=== PATIENT | female | born 1965 | race American Indian/Alaskan Native ===

== ENCOUNTER 2017-10-28 07:36 | Outpatient (CLI) | payer MEDICARE ==
[2017-10-28] MEDS ORDERED: LEXISCAN IV ONE ×2 (09:18→09:23)
[2017-10-28 13:38] VITALS: BP 116/69
--- NOTE | 2017-10-29 06:10 | Treadmill Report ---
THALLIUM STRESS TEST LEFT VENTRICLE: Left ventricular chamber size is within normal spread. Perfusion study demonstrates a small fixed apical defect, no reversibility on the resting study. Gated analysis demonstrates normal left ventricular systolic function, ejection fraction of 64%. CONCLUSION: Small fixed apical defect consistent with breast attenuation artifact, otherwise normal study. No ischemia demonstrated. [facility]# [id number] CA/NTS
== END 2017-10-28 07:37 | disposition home or self-care (01) ==
LOC: CARD 07:36
PROVIDERS: ATTEND Internal Medicine Cardiovascular Disease
DX: Z01.810 Encounter for preprocedural cardiovascular examination (principal); I10 Essential (primary) hypertension; K21.9 Gastro-esophageal reflux disease without esophagitis; E66.9 Obesity, unspecified; M19.90 Unspecified osteoarthritis, unspecified site; E11.9 Type 2 diabetes mellitus without complications; E03.9 Hypothyroidism, unspecified; Z90.5 Acquired absence of kidney
CPT/HCPCS: 78452; 93017; A9502; J2785

== ENCOUNTER 2018-07-11 09:12 | Outpatient (CLI) | payer MEDICARE | END 2018-07-11 09:13 | disposition home or self-care (01) | LOC: CARD 09:12 | PROVIDERS: ATTEND Specialist | DX: Z01.818 Encounter for other preprocedural examination (principal); I10 Essential (primary) hypertension; E66.01 Morbid (severe) obesity due to excess calories | CPT/HCPCS: 93005; 93010 ==

== ENCOUNTER 2018-07-15 06:59 | Day surgery (SDC) | payer MEDICARE ==
[2018-07-15] MEDS ORDERED: NACL 0.9% 1000 ML 1,000 ML IV SCH (09:00)
[2018-07-15] MEDS ORDERED: DIPRIVAN 10 MG/ML IV ONE (10:11)
[2018-07-15 10:59] VITALS: BP 146/82
--- NOTE | 2018-07-15 12:43 | Operative Report ---
PREOPERATIVE DIAGNOSIS: Morbid obesity. POSTOPERATIVE DIAGNOSIS: Small hiatal hernia. PROCEDURE: Esophagogastroduodenoscopy. ANESTHESIA: MAC. COMPLICATIONS: None. SPECIMENS: None. BLEEDING: None. INDICATIONS: The patient is a 52-year-old female with a history of morbid obesity. She is here for a preoperative EGD in preparation for her weight loss surgery. Informed consent was obtained. DESCRIPTION OF PROCEDURE: The patient was brought to the GI suite where she was placed in the left lateral decubitus position and underwent MAC anesthesia. A bite block was placed and a timeout was called. A standard adult Olympus gastroscope was inserted into the oropharynx, down the esophagus, into the stomach and the first portion of the duodenum. There was noted to be bilious reflux, but no other abnormalities up to the level of D1. On retroflexion view, she was noted to have a small type 1 sliding hiatal hernia. With this, the air was suctioned and removed. The gastroscope was removed. The patient tolerated the procedure with no immediate complications and was transferred to the PACU in stable condition. JOB# [id number] FELIZ/LUBA
== END 2018-07-15 07:00 | disposition home or self-care (01) ==
LOC: GIO 06:59
PROVIDERS: ATTEND Specialist
DX: K30 Functional dyspepsia (principal); E66.01 Morbid (severe) obesity due to excess calories; K44.9 Diaphragmatic hernia without obstruction or gangrene; E11.51 Type 2 diabetes mellitus with diabetic peripheral angiopathy without gangrene; E78.00 Pure hypercholesterolemia, unspecified; I10 Essential (primary) hypertension; G47.30 Sleep apnea, unspecified; K21.9 Gastro-esophageal reflux disease without esophagitis; M19.90 Unspecified osteoarthritis, unspecified site; E05.90 Thyrotoxicosis, unspecified without thyrotoxic crisis or storm; Z98.890 Other specified postprocedural states; Z90.49 Acquired absence of other specified parts of digestive tract; Z86.711 Personal history of pulmonary embolism; Z98.51 Tubal ligation status; Z90.5 Acquired absence of kidney; Z79.899 Other long term (current) drug therapy; Z79.84 Long term (current) use of oral hypoglycemic drugs; Z68.41 Body mass index [BMI] 40.0-44.9, adult; Z86.2 Personal history of diseases of the blood and blood-forming organs and certain disorders involving the immune mechanism
CPT/HCPCS: 43235; 82962; J2704; J7030